=== PATIENT | male | born 1935 | race Caucasian/White ===

== ENCOUNTER → 2017-01-14 | Outpatient (CLI) | payer MEDICARE, OTHER ==
[~2017-01-14] MED LIST: ALBUTEROL2.5 MG/0.5 INH; ASPIRIN LO-DOSE81 MG PO; CALCIUM 500 +1 EAC1 PO; CATAPRES0.1 MG PO; CEFTIN500 MG PO; CIPRO500 MG PO; CLEOCIN150 MG PO; COLACE100 MG PO; CRANBERRY PLUS1 EACH PO; DULCOLAX5 MG PO; FINASTERIDE5 MG PO; HYGROTON25 MG PO; IMDUR30 MG PO; KCL - MICRO-K10 MEQ PO; LIPITOR40 MG PO; MINOXIDIL2.5 MG PO; NORVASC5 MG PO; OMEGA Q PLUS PO; PLAVIX75 MG PO; PRAVACHOL40 MG PO; PRINIVIL (ZESTRI5 MG PO; THERA-VITE W/ B1 TAB PO; TOPROL XL25 MG PO; TYLENOL EXTRA500 MG PO; VITAMIN D1000 UNI1 PO; ZANTAC150 MG PO; ZOLOFT100 M1 PO
[2017-01-14 14:14] LABS: ANION GAP 14.2 (10.0-19.0); CALCIUM 8.7 mg/dL (8.5-10.5); CREATININE 1.3 mg/dL (0.6-1.3); MAGNESIUM 2.2 mg/dL (1.3-2.6); POTASSIUM 4.2 mMol/L (3.7-5.1)
== END | disposition disaster alternative care site (69) ==
LOC: LGSOS 14:02
PROVIDERS: Internal Medicine Interventional Cardiology
DX: I25.10 Atherosclerotic heart disease of native coronary artery without angina pectoris (principal)

== ENCOUNTER → 2017-01-22 | Outpatient (CLI) | payer MEDICARE, OTHER ==
[2017-01-22 11:55] LABS: ANION GAP 11.5 (10.0-19.0); CALCIUM 8.7 mg/dL (8.5-10.5); CREATININE 1.3 mg/dL (0.6-1.3); POTASSIUM 4.5 mMol/L (3.7-5.1)
== END | disposition disaster alternative care site (69) ==
LOC: LGSOS 11:37
PROVIDERS: Internal Medicine Interventional Cardiology
DX: I25.10 Atherosclerotic heart disease of native coronary artery without angina pectoris (principal)

== ENCOUNTER → 2017-01-22 | Outpatient (CLI) | payer MEDICARE, OTHER | END | disposition disaster alternative care site (69) | LOC: GRAD 11:30 | DX: R06.02 Shortness of breath (principal); J84.10 Pulmonary fibrosis, unspecified ==

== ENCOUNTER → 2017-05-19 | Outpatient (CLI) | payer MEDICARE, OTHER | END | disposition disaster alternative care site (69) | LOC: GRAD 10:44 | DX: I71.4 Abdominal aortic aneurysm, without rupture (principal); I71.2 Thoracic aortic aneurysm, without rupture; I72.3 Aneurysm of iliac artery; K57.30 Diverticulosis of large intestine without perforation or abscess without bleeding ==